=== PATIENT | female | born 1990 | race Two or more races ===

== ENCOUNTER 2024-08-15 09:16 | Emergency (ER) | payer MEDICAID, OTHER ==
[~2024-08-15] VITALS: Ht 149.9 cm; Wt 78.6 kg
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
[2024-08-15 10:53] VITALS: BP 130/90; PULSE 70; RESP 18; TEMP 98.1; O2SAT 96
== END 2024-08-15 10:54 | disposition home or self-care (01) ==
LOC: ER 09:16
DX: S09.8XXA Other specified injuries of head, initial encounter (principal); Z32.02 Encounter for pregnancy test, result negative; X58.XXXA Exposure to other specified factors, initial encounter; Y93.89 Activity, other specified; Y92.89 Other specified places as the place of occurrence of the external cause; Y99.8 Other external cause status
CPT/HCPCS: 70450; 81025